=== PATIENT | female | born 1950 | race Caucasian/White ===

== ENCOUNTER → 2017-10-27 | Outpatient (CLI) | payer OTHER | END | disposition home or self-care (01) | LOC: RAH 08:31 | PROVIDERS: ATTEND Internal Medicine | DX: I70.0 Atherosclerosis of aorta (principal); R00.2 Palpitations | CPT/HCPCS: 93306 ==

== ENCOUNTER → 2018-11-21 | Outpatient (CLI) | payer OTHER | END | disposition home or self-care (01) | LOC: OIH 14:34 | PROVIDERS: ATTEND Internal Medicine | DX: Z13.6 Encounter for screening for cardiovascular disorders (principal) | CPT/HCPCS: 75571 ==

== ENCOUNTER → 2019-04-26 | Outpatient (CLI) | payer OTHER | END | disposition home or self-care (01) | LOC: RAH 15:01 | PROVIDERS: ATTEND Internal Medicine | DX: R05 Cough (principal); I70.0 Atherosclerosis of aorta; M47.815 Spondylosis without myelopathy or radiculopathy, thoracolumbar region | CPT/HCPCS: 71046 ==

== ENCOUNTER → 2019-10-31 | Outpatient (CLI) | payer OTHER ==
[~2019-10-31] MED LIST: IOHEXOL-350 50ML VIAL IV ONE
== END | disposition home or self-care (01) ==
LOC: RAH 12:34
PROVIDERS: ATTEND Internal Medicine
DX: J47.9 Bronchiectasis, uncomplicated (principal); J98.11 Atelectasis; I51.7 Cardiomegaly
CPT/HCPCS: 71260; Q9967

== ENCOUNTER 2019-11-20 19:17 | Emergency (ER) | payer OTHER ==
[~2019-11-20 19:17] MED LIST changes: +0.9% SODIUM CHLORIDE 500 ML IV BAG IV ONE; -IOHEXOL-350 50ML VIAL IV ONE
[2019-11-20 20:16] LABS: BASOPHILS % (AUTO) 1.3 % (0.0-5.0); EOSINOPHILS % (AUTO) 0.8 % (0.0-8.0); LYMPHOCYTES % (AUTO) 38.8 % (21.0-51.0); MEAN CORPUSCULAR HEMOGLOBIN 29.1 pg (27.0-33.0); MEAN CORPUSCULAR HGB CONC 33.5 g/dL (32.0-36.0); MEAN CORPUSCULAR VOLUME 86.9 fL (79-99); MONOCYTES % (AUTO) 9.1 % (3.0-13.0); NEUTROPHILS % (AUTO) 49.7 % (40.0-77.0); PLATELET COUNT (AUTO) 226 K/uL (130-400); RED BLOOD CELL COUNT(AUTO) 4.95 MIL/uL (4.00-5.50); RED CELL DISTRIBUTION WIDTH 12.5 % (11.0-15.5); WHITE BLOOD COUNT (AUTO) 6.1 K/uL (4.8-10.8)
[2019-11-20 20:30] LABS: CREATININE 1.1 mg/dL (0.5-1.5); POTASSIUM 3.6 mmol/L (3.5-5.1)
[2019-11-20 20:35] LABS: ALBUMIN 4.1 g/dL (3.5-5.0); BILIRUBIN,TOTAL 0.3 mg/dL (0.2-1.0)
[2019-11-20 20:43] LABS: APPEARANCE,URINE Clear (CLEAR); BILIRUBIN,URINE Negative (NEGATIVE); COLOR,URINE Yellow (YELLOW); GLUCOSE, URINE (UA) Negative (NEGATIVE); KETONES,URINE Negative (NEGATIVE); LEUKOCYTE ESTERASE ,URINE Trace (NEGATIVE); NITRATE,URINE Negative (NEGATIVE); OCCULT BLOOD,URINE Small (NEGATIVE); PH,URINE 5.5 (5.0-8.0); PROTEIN,URINE Negative (NEGATIVE); UROBILINOGEN,URINE 0.2 mg/dL (0.2-1.0)
[2019-11-20 20:50] LABS: BACTERIA,URINE Rare /HPF (None Seen); RBC,URINE 0-1 /HPF (0-1); SQUAMOUS EPITHELIAL CELL,UR Few /HPF (0-2)
[2019-11-20] MEDS ORDERED: CLONIDINE HCL 0.1 MG TABLET ONE (21:29)
== END 2019-11-20 23:00 | disposition home or self-care (01) ==
LOC: EDH 19:17
DX: I10 Essential (primary) hypertension (principal); E86.0 Dehydration; E78.5 Hyperlipidemia, unspecified; G43.909 Migraine, unspecified, not intractable, without status migrainosus; K21.9 Gastro-esophageal reflux disease without esophagitis; Z79.899 Other long term (current) drug therapy; Z90.49 Acquired absence of other specified parts of digestive tract; Z88.8 Allergy status to other drugs, medicaments and biological substances
CPT/HCPCS: 36415; 71045; 80053; 81001; 83880; 84484; 85025; 93005; 99284; J7040

== ENCOUNTER → 2019-12-04 | Outpatient (CLI) | payer OTHER ==
--- NOTE | 2019-12-04 12:00 | NUR ---
MBSS COMPLETED NO ASPIRATION, NO PENETRATION AT THIS TIME. RECOMMEND REGULAR SOLIDS, THIN LIQUIDS, PILLS WHOLE WITH LIQUIDS TOLERATED. ACCOUNTS RECEIVABLE COORDINATOR REVIEWED RESULTS AND RECOMMENDATIONS WITH Pt. ACCOUNTS RECEIVABLE COORDINATOR EDUCATED Pt ON RISK AND CONSEQUENCES OF ASPIRATION. ALL QUESTIONS ANSWERED AT THIS TIME. Addendum: 12/04/[address]ANE CRUZ Amended: Links added.
== END | disposition home or self-care (01) ==
LOC: RAH 10:33
PROVIDERS: ATTEND Internal Medicine
DX: R13.19 Other dysphagia (principal); K21.9 Gastro-esophageal reflux disease without esophagitis

== ENCOUNTER → 2020-04-23 | Outpatient (CLI) | payer OTHER | END | disposition home or self-care (01) | LOC: RAH 11:19 | PROVIDERS: ATTEND Internal Medicine | DX: R22.1 Localized swelling, mass and lump, neck (principal) | CPT/HCPCS: 76536 ==

== ENCOUNTER → 2020-10-21 | Outpatient (CLI) | payer MEDICARE | END | disposition home or self-care (01) | LOC: RAH 15:00 | PROVIDERS: ATTEND Urology | DX: N28.1 Cyst of kidney, acquired (principal); R31.9 Hematuria, unspecified; N32.89 Other specified disorders of bladder | CPT/HCPCS: 76770 ==

== ENCOUNTER → 2020-11-27 | Outpatient (CLI) | payer MEDICARE | END | disposition home or self-care (01) | LOC: RAH 08:26 | PROVIDERS: ATTEND Internal Medicine | DX: R10.11 Right upper quadrant pain (principal); K76.89 Other specified diseases of liver; K76.0 Fatty (change of) liver, not elsewhere classified; R16.0 Hepatomegaly, not elsewhere classified | CPT/HCPCS: 76705 ==

== ENCOUNTER → 2020-12-30 | Outpatient (CLI) | payer MEDICARE | END | disposition home or self-care (01) | LOC: RAH 10:56 | PROVIDERS: ATTEND Internal Medicine | DX: R10.11 Right upper quadrant pain (principal); R16.0 Hepatomegaly, not elsewhere classified; R14.0 Abdominal distension (gaseous); R11.0 Nausea; R55 Syncope and collapse | CPT/HCPCS: 78227; A9537 ==

== ENCOUNTER → 2022-06-08 | Outpatient (CLI) | payer MEDICARE | END | disposition home or self-care (01) | LOC: RAH 11:31 | PROVIDERS: ATTEND Internal Medicine | DX: M16.0 Bilateral primary osteoarthritis of hip (principal); R10.2 Pelvic and perineal pain; M25.551 Pain in right hip; M25.552 Pain in left hip | CPT/HCPCS: 73721 ==

== ENCOUNTER → 2022-08-17 | Outpatient (CLI) | payer MEDICARE | END | disposition home or self-care (01) | LOC: RAH 13:56 | PROVIDERS: ATTEND Internal Medicine | DX: M54.16 Radiculopathy, lumbar region (principal) | CPT/HCPCS: 72070 ==

== ENCOUNTER → 2022-09-02 | Outpatient (CLI) | payer MEDICARE | END | disposition home or self-care (01) | LOC: RAH 10:22 | PROVIDERS: ATTEND Internal Medicine Gastroenterology | DX: R11.2 Nausea with vomiting, unspecified (principal) | CPT/HCPCS: 78264; A9541 ==

== ENCOUNTER → 2022-10-19 | Outpatient (CLI) | payer MEDICARE | END | disposition home or self-care (01) | LOC: RAH 12:54 | PROVIDERS: ATTEND Urology | DX: N28.1 Cyst of kidney, acquired (principal); R31.9 Hematuria, unspecified | CPT/HCPCS: 76770 ==

== ENCOUNTER → 2023-05-09 | Outpatient (CLI) | payer MEDICARE | END | disposition home or self-care (01) | LOC: RAH 12:53 | PROVIDERS: ATTEND Internal Medicine | DX: R05.3 Chronic cough (principal); J47.9 Bronchiectasis, uncomplicated; M47.815 Spondylosis without myelopathy or radiculopathy, thoracolumbar region | CPT/HCPCS: 71046 ==

== ENCOUNTER → 2023-09-01 | Outpatient (CLI) | payer MEDICARE | END | disposition home or self-care (01) | LOC: RAH 14:02 | PROVIDERS: ATTEND Clinical Nurse Specialist Family Health | DX: M25.511 Pain in right shoulder (principal); M94.0 Chondrocostal junction syndrome [Tietze]; R07.81 Pleurodynia | CPT/HCPCS: 71100; 73030 ==

== ENCOUNTER → 2023-11-22 | Outpatient (CLI) | payer MEDICARE | END | disposition home or self-care (01) | LOC: RAH 13:18 | PROVIDERS: ATTEND Surgery | DX: E04.1 Nontoxic single thyroid nodule (principal); E83.52 Hypercalcemia | CPT/HCPCS: 76536 ==

== ENCOUNTER → 2024-01-18 | Outpatient (CLI) | payer MEDICARE ==
[~2024-01-18] MED LIST changes: -0.9% SODIUM CHLORIDE 500 ML IV BAG IV ONE; +IOHEXOL 350 MG/ML 100ML INFUS..BTL IV ONE
== END | disposition home or self-care (01) ==
LOC: RAH 09:12
PROVIDERS: ATTEND Internal Medicine Medical Oncology
DX: K76.89 Other specified diseases of liver (principal); R16.0 Hepatomegaly, not elsewhere classified; R19.01 Right upper quadrant abdominal swelling, mass and lump; M47.815 Spondylosis without myelopathy or radiculopathy, thoracolumbar region; K44.9 Diaphragmatic hernia without obstruction or gangrene; I70.0 Atherosclerosis of aorta
CPT/HCPCS: 74160; Q9967

== ENCOUNTER 2024-02-09 17:06 | Emergency (ER) | payer MEDICARE ==
[~2024-02-09] VITALS: Ht 167.6 cm; Wt 72.6 kg
[2024-02-09 17:31] LABS: BASOPHILS # (AUTO) 0.08 K/uL (0.00-0.20); BASOPHILS % (AUTO) 1.1 % (0.0-5.0); EOSINOPHILS # (AUTO) 0.16 K/uL (0.00-0.70); EOSINOPHILS % (AUTO) 2.1 % (0.0-8.0); HEMATOCRIT 42.2 % (36-48); IMMATURE GRANULOCYTE ABSOLUTE 0.02 K/uL (0-1); LYMPHOCYTES # (AUTO) 3.5 K/uL (1.0-4.8); LYMPHOCYTES % (AUTO) 46.9 % (21.0-51.0); MEAN CORPUSCULAR HEMOGLOBIN 28.9 pg (27.0-33.0); MEAN CORPUSCULAR HGB CONC 33.2 g/dL (32.0-36.0); MONOCYTES # (AUTO) 0.6 K/uL (0.1-1.0); MONOCYTES % (AUTO) 7.6 % (3.0-13.0); NEUTROPHILS # (AUTO) 3.1 K/uL (1.8-7.7); PLATELET COUNT (AUTO) 251 K/uL (130-400); RED BLOOD CELL COUNT(AUTO) 4.85 MIL/uL (4.00-5.50); RED CELL DISTRIBUTION WIDTH 12.3 % (11.0-15.5); WHITE BLOOD COUNT (AUTO) 7.5 K/uL (4.8-10.8)
[2024-02-09 17:39] LABS: CREATININE 1.1 mg/dL (0.5-1.0); POTASSIUM 3.9 mmol/L (3.5-5.1)
[2024-02-09 17:51] LABS: B-TYPE NATRIURETIC PEPTIDE 36 pg/mL (0-100)
[2024-02-09] MEDS: ONDANSETRON 4MG INJ IVP ONE (18:44)
[2024-02-09] MEDS: PANTOPRAZOLE 40 MG/VIAL IVP ONE (18:44)
[2024-02-09 19:04] LABS: APPEARANCE,URINE CLEAR (CLEAR); BILIRUBIN,URINE NEGATIVE (NEGATIVE); COLOR,URINE COLORLESS (YELLOW); GLUCOSE, URINE (UA) NEGATIVE (NEGATIVE); KETONES,URINE NEGATIVE (NEGATIVE); LEUKOCYTE ESTERASE ,URINE NEGATIVE Leu/uL (NEGATIVE); NITRATE,URINE NEGATIVE (NEGATIVE); OCCULT BLOOD,URINE NEGATIVE (NEGATIVE); PH,URINE 7.5 (5.0-8.0); PROTEIN,URINE NEGATIVE (NEGATIVE); UROBILINOGEN,URINE 0.2 mg/dL (0.2-1.0)
[2024-02-09 19:07] LABS: ADD UA MICROSCOPIC NO
[2024-02-09 20:25] VITALS: BP 126/45; PULSE 71; RESP 18; O2SAT 98
== END 2024-02-09 20:38 | disposition home or self-care (01) ==
LOC: EDH 17:06
DX: R07.89 Other chest pain (principal); E83.52 Hypercalcemia; E78.00 Pure hypercholesterolemia, unspecified; K44.9 Diaphragmatic hernia without obstruction or gangrene; I10 Essential (primary) hypertension; K21.9 Gastro-esophageal reflux disease without esophagitis; Z88.5 Allergy status to narcotic agent; Z90.89 Acquired absence of other organs; Z98.51 Tubal ligation status; Z98.890 Other specified postprocedural states
CPT/HCPCS: 99285; 96374; 71045; 96375; 82550; 84484 ×2; 80048; 83880; 85025; 81003; 36415; 93005; J2405; J2470

== ENCOUNTER → 2024-07-04 | Outpatient (CLI) | payer MEDICARE ==
--- NOTE | 2024-07-04 15:02 | HMCIMG ---
MR SHOULDER RIGHT WO REASON: M75.41 Impingement syndrome of right shoulder COMPARISON: None TECHNIQUE: Routine imaging protocol was performed in the axial, oblique sagittal and oblique coronal plane with T1, proton density, T2 and gradient recalled sequences. FINDINGS: There are AC joint degenerative changes. There is an inferiorly directed osteophyte causing focal indentation on the underlying supraspinatus muscle. These findings can result in impingement syndrome in the appropriate clinical setting. The rotator cuff tendon appears intact. There is no evidence of tendinosis or tendinitis. There is no evidence of tear. Biceps tendon is in a normal location. There is glenohumeral joint space cartilage loss and narrowing. There are some subchondral sclerosis in the acetabulum. These findings are consistent with at least a moderate component of osteoarthritis.. IMPRESSION: 1. Moderate osteoarthritis in the glenohumeral joint space. 2. AC joint degenerative changes with an inferiorly directed ossified, this can result in impingement in the appropriate clinical setting. 3. No evidence of rotator cuff tear or tendinitis.
== END | disposition home or self-care (01) ==
LOC: RAH 13:38
PROVIDERS: ATTEND Student in an Organized Health Care Education/Training Program
DX: M19.011 Primary osteoarthritis, right shoulder (principal); M25.711 Osteophyte, right shoulder; M94.8X1 Other specified disorders of cartilage, shoulder; M75.41 Impingement syndrome of right shoulder
CPT/HCPCS: 73221

== ENCOUNTER → 2024-08-02 | Outpatient (CLI) | payer MEDICARE ==
--- NOTE | 2024-08-02 10:43 | HMCIMG ---
CHEST 2VWS HISTORY: Chronic renal disease COMPARISON: 02/09/2024 FINDINGS: Frontal and lateral projections of the chest were obtained. There is no acute pulmonary infiltrates or failure. The heart is not enlarged. Prominent interstitial markings are seen. Degenerative changes are seen of the thoracolumbar spine. IMPRESSION: 1. No acute pulmonary infiltrates.
== END | disposition home or self-care (01) ==
LOC: RAH 10:12
PROVIDERS: ATTEND Internal Medicine
DX: M47.815 Spondylosis without myelopathy or radiculopathy, thoracolumbar region (principal); I12.9 Hypertensive chronic kidney disease with stage 1 through stage 4 chronic kidney disease, or unspecified chronic kidney disease; N18.31 Chronic kidney disease, stage 3a
CPT/HCPCS: 71046

== ENCOUNTER → 2024-08-15 | Outpatient (CLI) | payer MEDICARE ==
--- NOTE | 2024-08-20 09:28 | HMCSR ---
APPROVED REPORT EXAM: Two-dimensional and M-mode echocardiogram with Doppler and color Doppler. INDICATION ICD: I45.10 Unspecified Right bundle branch block 2D Dimensions RVDd3.3 cmLVEF(%)61.7 (>50%)LVEF(%, simp.)57 % IVSd0.7 (0.7-1.1cm)FS(%)33 %LA ESV INDEX (BP)19.81 mL/m2 LVDd4.7 (3.8-5.6cm)LA (2D)3.7 (1.6-4.0cm) PWd1.0 (0.7-1.1cm)Ao Root(2D)3.0 (2.0-3.7cm) IVSs0.7 cmLVOT diam2.2 (1.8-2.4cm) LVDs3.1 (2.5-4.0cm) PWs1.2 cm M-Mode Dimensions EPSS0.2 cm LA (MM)3.7 (1.6-4.0cm) Ao Root(MM)2.6 (2.0-3.7cm) Aortic Valve AoV Vmax1.4 m/Leelee Peak GR7.9 mmHgLVOT Vmax1.0 m/s AoV VTI0.3 mAo Mean GR3.6 mmHgLVOT VTI0.21 m BRANDY (VMAX)3.3 cm2Al P1/2T726 msAVA (VTI) 3.3 cm2 Mitral Valve MV E Vmax65.6 cm/sDECEL Nrau078 ms MV A Vmax80.2 cm/sP 1/2 T62 ms E/A ratio0.8MVA (PHT)3.6 cm2 TDI E/E' Ykhukd88.1E/E' Gpkrvwa23.1 Medial E' Peak V5.00 cm/sLateral E' Peak V5.00 cm/s Pulmonary Valve PV Vmax1.0 m/s Tricuspid Valve TR Vmax2.4 m/sRAP (EST) 8 izQtTLWX95.0 mmHg TR Peak GR23.0 mmHg Left Ventricle The left ventricle is normal size. There is normal left ventricular wall thickness. The LVEF is 55-60 %. Stage I diastolic dysfunction. Right Ventricle The right ventricle is normal size. The right ventricular systolic function is normal. Atria The left atrium size is normal. Cannot exclude PFO. The right atrium size is normal. Aortic Valve The aortic valve is normal in structure. Mild aortic regurgitation is present. There is no aortic jessica vular stenosis. Mitral Valve The mitral valve is normal in structure. There is no mitral valve regurgitation noted. There is no mi tral valve stenosis. Tricuspid Valve The tricuspid valve is normal in structure. There is mild tricuspid regurgitation. No pulmonary hyper tension. Pulmonic Valve The pulmonary valve is normal in structure. There is no pulmonic valvular regurgitation. Great Vessels The aortic root is normal in size. The IVC is normal in size and collapses >50% with inspiration. Pericardium There is no pericardial effusion. Other Information Quality : Adequate Conclusion The left ventricle is normal size. The LVEF is 55-60%. Mild aortic regurgitation is present.
== END | disposition home or self-care (01) ==
LOC: RAH 13:24
PROVIDERS: ATTEND Internal Medicine Cardiovascular Disease
DX: I08.2 Rheumatic disorders of both aortic and tricuspid valves (principal); I45.10 Unspecified right bundle-branch block
CPT/HCPCS: 93306

== ENCOUNTER 2024-08-24 06:15 | Day surgery (SDC) | payer MEDICARE ==
--- NOTE | 2024-08-22 09:17 | EKG ---
[facility] Test Date: 2024-08-22 Test Time: 09:55:11 Pat Name: MANSOOR MOJICA Department: [facility] Room: Gender: Female Reading Intervention Teacher: [id number] : 1950 Requested By: JORGE VELEZ Order Number: [id number] Reading MD: Measurements Intervals [place] Rate: 67 P: 68 WI: 189 QRS: 41 QRSD: 141 T: 44 QT: 403 QTc: 426 Interpretive Statements Sinus rhythm Right bundle branch block No previous ECG available for comparison Please click the below link to view image of tracing.
[2024-08-22 09:28] VITALS: BP 137/55; PULSE 71; RESP 16; TEMP 97.2
[~2024-08-24] VITALS: Ht 167.6 cm; Wt 73.6 kg
[2024-08-24] VITALS (13 sets, daily range): BP systolic 120–135; BP diastolic 48–66; PULSE 59–68; RESP 14–18; TEMP 97–98.1
[~2024-08-24 06:15] MED LIST changes: +ALIR75PE5 SQ; +AMIT50TA3 PO; +BIOT5000 PO; +BUTA1CAP53 PO; +CEVI30CA7 PO; +CHOL2000 PO; +CYCL1DRO14 OU; +ESOM40CA66 PO; +FAMO40TA7 PO; +FENO54TA6 PO; +HYDR200T75 PO; -IOHEXOL 350 MG/ML 100ML INFUS..BTL IV ONE; +LETR2.5T7 PO; +LOSA50TA64 PO; +MELA10CA2 PO; +METO75TA PO; +MINO2.5T3 PO; +ZOLP5TAB8 PO
[2024-08-24] MEDS: LACTATED RINGERS 1000ML 1,000 ML IV ONE (06:48)
[2024-08-24] MEDS: ceFAZolin SODIUM 2 GM VIAL ONE (06:48)
[2024-08-24] MEDS ORDERED: FAMOTIDINE 20MG VIAL IV ONE (06:54)
[2024-08-24] MEDS ORDERED: acetaMINOPHEN 100 ML ONE (06:54)
[2024-08-24] MEDS ORDERED: ROPivacaine 0.5% 5MG/ML 30ML ONE (06:56)
[2024-08-24] MEDS ORDERED: ketaMINE 50MG/ML SYRINGE 50 MG/ML DISP.SYRIN ONE (06:56)
[2024-08-24] MEDS ORDERED: LIDOCAINE PF 100MG/5ML (2%) SYRINGE 5ML ONE (07:06)
[2024-08-24] MEDS ORDERED: rocuRONium bROMide 10MG/1ML 5ML VL ONE ×2 (07:06→09:20)
[2024-08-24] MEDS ORDERED: proPOFol 10 MG/ML 20ML VIAL IV ONE (07:06)
[2024-08-24] MEDS ORDERED: FENTanyl CITRate PF 50 MCG/1 ML 2ML VIAL ONE (07:07)
[2024-08-24] MEDS ORDERED: EPINEPHrine PF 1MG (1:1,000) 1 MG/ML AMP ONE (07:29)
[2024-08-24] MEDS ORDERED: HYDR-4060 PO (07:51)
[2024-08-24] MEDS ORDERED: ondanSETRON 4MG INJ ONE (09:04)
[2024-08-24] MEDS ORDERED: dexaMETHasone SOD PHOSPHATE 10MG/ML 1ML VIAL ONE (09:04)
[2024-08-24] MEDS ORDERED: ePHEDrine SULFate 50 MG/ML AMPULE ONE (09:05)
[2024-08-24] MEDS ORDERED: GLYCOPYRROLATE 0.2 MG/ML 5 ML VIAL ONE (09:09)
[2024-08-24] MEDS ORDERED: NEOSTIGMINE METHYLSULFATE 1MG/ML IV ONE (09:09)
[2024-08-24] MEDS ORDERED: phenylEPHRINE HCL 10 MG/ML 1ML VIAL IV ONE (09:27)
[2024-08-24] MEDS ORDERED: SUGAMMADEX SODIUM 200 MG/2 ML VIAL IV ONE (10:38)
--- NOTE | 2024-08-24 13:04 | OP ---
Operative Note: DATE OF PROCEDURE: 08/24/24 SURGEON: JORGE VELEZ MD DOCUMENT CONTROL ASSOCIATE: Pa Jacques ANESTHESIA: General and interscalene block ANESTHESIOLOGIST/ASSISTANT MAINTENANCE MANAGER: Jennifer Martin PREOPERATIVE DIAGNOSIS: Right shoulder subacromial impingement and acromioclavicular joint osteoarthritis, glenohumeral osteoarthritis POSTOPERATIVE DIAGNOSIS: Right shoulder subacromial impingement and acromioclavicular joint osteoarthritis, glenohumeral osteoarthritis PROCEDURE: Right shoulder arthroscopic foreign body removal, labral debridement, distal clavicle excision ESTIMATED BLOOD LOSS: 10 cc FINDINGS: On insertion of the arthroscope into the joint we noted significant degenerative appearance of cartilage on both glenoid and humeral head. There was a white suture with two limbs based on an anchor in the anterior glenoid. The long head of the biceps appeared intact with a healthy appearing insertion site. The subscapularis tendon appeared intact. Supraspinatus was intact as it extended back towards the infraspinatus region with noted a significant fraying of the cartilage of the humeral head posteriorly. There was also noted a large grade 4 lesion in the posterior aspect of the humeral head. We excise the sutures from the anchor in the anterior glenoid. There was degenerative fraying of the labrum all the way around with minimal labral fraying inferiorly. There was significant grade 2-3 chondromalacia involving near the entire glenoid. Majority of the humeral head with grade 2 chondromalacia with a our list intra- articular pictures showing after we finished debriding the labrum and removing the suture. On repositioning of the arthroscope into the subacromial space we could appreciate a significant prominence of the distal clavicle at the acromioclavicular joint. The lateral acromion appeared smooth without significant osteophyte. The acromioclavicular joint had significant step-off of the distal clavicle. We then resected a proximally 8 mm of the level clavicle of the osteophyte off the acromion of the acromioclavicular joint. INDICATIONS: 74-year-old female with a history of right shoulder pain with hi story of previous arthroscopy. They were failing conservative management and found on MRI to have no full-thickness tears of the rotator cuff but large of the distal clavicle with the AC joint causing mass effect on the rotator cuff. The patient also had some mild glenohumeral arthritic changes noted on the MRI.. After discussion of the risk, benefits, and alternatives, the patient voluntarily agreed to undergo the aforementioned procedure. DESCRIPTION OF PROCEDURE: Patient was properly identified in the preoperative holding area. Surgical site marking was verified and surgery consent reviewed. The patient was then taken to the operating room and placed in supine position on the OR table. After induction of general anesthesia, preoperative antibiotics were given, all bony prominences were well-padded as the patient was transitioned into beachchair position. The right upper extremity was then prepped and draped in usual sterile fashion. Surgical timeout was done verifying correct surgery, side, site, and location to be performed. We then began the procedure by using an 18-gauge spinal needle to inject the shoulder joint with normal saline to distend the joint capsule. A posterior lateral portal was established using 11 blade and we inserted our arthroscope through this portal. We established an anterior portal using needle localization under direct visualization and placed a working cannula through this portal. We then performed a diagnostic arthroscopy with the aforementioned findings. We then excised the suture from the anterior glenoid that did not appear to be holding any tissue any longer. The suture was removed using the shaver device without any stump left behind. We then evaluated the degenerative edge of the labrum and debrided this as well as some of the synovial tissue that was hypertrophic over the long head of the biceps insertion. The biceps insertion appeared healthy once the synovium had been resected. We used the electrocautery one to help smooth the edge of the labrum in the regions of degenerative fraying. We then removed the arthroscope and repositioned into the subacromial space with the working portal anteriorly placed into the subacromial space as well. Here we performed some bursectomy of the subacromial region identified are acromioclavicular joint. After we debrided the some of the soft tissue on the undersurface of the acromioclavicular joint, we then inserted the bur and resected approximately the lateral 8 mm of bone from the distal clavicle. We also used the bur to remove the osteophyte from the acromial side of the AC joint. We then removed as much of the arthroscopic fluid as possible and removed the arthroscopic instruments and camera. We expressed some the remaining fluid from the surrounding soft tissues. 3-0 nylon was then used to close the skin portals. Sterile soft dressing was applied. Patient was then placed into a shoulder immobilizer, awakened from anesthesia, and taken the recovery room in stable condition. JORGE VELEZ MD Aug 24, 2024 13:04
== END 2024-08-24 12:24 ==
LOC: DAH 06:15
PROVIDERS: ATTEND Student in an Organized Health Care Education/Training Program
DX: M75.41 Impingement syndrome of right shoulder (principal); M19.011 Primary osteoarthritis, right shoulder; M25.811 Other specified joint disorders, right shoulder; M94.211 Chondromalacia, right shoulder; I10 Essential (primary) hypertension; K21.9 Gastro-esophageal reflux disease without esophagitis; G43.909 Migraine, unspecified, not intractable, without status migrainosus; E78.00 Pure hypercholesterolemia, unspecified; R07.2 Precordial pain; M35.00 Sjogren syndrome, unspecified; I45.10 Unspecified right bundle-branch block; Z90.49 Acquired absence of other specified parts of digestive tract; Z79.01 Long term (current) use of anticoagulants; Z85.3 Personal history of malignant neoplasm of breast; Z82.49 Family history of ischemic heart disease and other diseases of the circulatory system; Z88.6 Allergy status to analgesic agent; Z79.899 Other long term (current) drug therapy; Z98.890 Other specified postprocedural states
CPT/HCPCS: 29826; 29824; 64415; A4223 ×2; A4600; A4663; J7030; J7120; J3490 ×6; J3010; J1100; J2003; J0171; J2704; J2405; J2710; J2795; J2371; J0690; A6223; A4930; A4649; A4215; A4213; A4222; A4221; A4216; 93005

== ENCOUNTER → 2024-12-26 | Outpatient (CLI) | payer MEDICARE ==
[~2024-12-26] MED LIST changes: +AMIT50TA14 PO; -AMIT50TA3 PO; +HYDR-4060 PO; +MELA10CA11 PO; -MELA10CA2 PO
--- NOTE | 2024-12-27 04:11 | HMCIMG ---
EXAM: CR Right Shoulder, 1 view. CLINICAL HISTORY: Pain. COMPARISON: Radiograph of the right shoulder dated 09/01/2023. FINDINGS: No acute fracture or aggressive appearing osseous lesion. Mild osteopenia. Mild osteoarthritis in the acromioclavicular and glenohumeral joints. Nonspecific punctate radiopacities overlie the right arm. IMPRESSION: No acute bony abnormality is evident. Mild osteopenia. Mild osteoarthritis. No interval changes. /[place]
--- NOTE | 2024-12-27 04:22 | HMCIMG ---
EXAM: CR Right Wrist, 3 views. CLINICAL HISTORY: Pain. COMPARISON: None provided. FINDINGS: No acute fracture or aggressive appearing osseous lesion. Mild osteopenia. Moderate osteoarthritis, most pronounced in the first carpometacarpal joint. Questionable chronic deformity of the trapezium with mild proximal subluxation of the first metatarsal base. Mild diffuse soft tissue swelling. IMPRESSION: No acute bony abnormality is evident. Mild osteopenia. Moderate osteoarthritis, most pronounced in the first carpometacarpal joint. Questionable chronic deformity of the trapezium with mild proximal subluxation of the first metatarsal base. /Street
== END | disposition home or self-care (01) ==
LOC: RAH 11:29
PROVIDERS: ATTEND Clinical Nurse Specialist Family Health
DX: S40.011D Contusion of right shoulder, subsequent encounter (principal); S60.211D Contusion of right wrist, subsequent encounter; M19.011 Primary osteoarthritis, right shoulder; M18.11 Unilateral primary osteoarthritis of first carpometacarpal joint, right hand; M79.89 Other specified soft tissue disorders; M25.531 Pain in right wrist; M85.89 Other specified disorders of bone density and structure, multiple sites; Z91.81 History of falling; X58.XXXD Exposure to other specified factors, subsequent encounter
CPT/HCPCS: 73030; 73110